=== PATIENT | female | born 1955 | race Caucasian/White ===

== ENCOUNTER 2016-12-10 13:43 | Emergency (ER) | payer OTHER ==
[~2016-12-10] VITALS: Ht 157.5 cm; Wt 77.1 kg
[2016-12-10 13:52] VITALS: BP 147/66
== END 2016-12-10 15:07 | disposition home or self-care (01) ==
LOC: ER 13:43
DX: J01.10 Acute frontal sinusitis, unspecified (principal)

== ENCOUNTER 2018-01-15 11:51 | Emergency (ER) | payer OTHER ==
[~2018-01-15] VITALS: Ht 157.5 cm; Wt 68.0 kg
[2018-01-15 12:08] VITALS: BP 134/86
[2018-01-15] MEDS ORDERED: ACETAMINOPHEN 325 MG TAB PO ONE (13:15)
== END 2018-01-15 13:46 | disposition home or self-care (01) ==
LOC: ER 11:51
DX: S82.832A Other fracture of upper and lower end of left fibula, initial encounter for closed fracture (principal); X50.1XXA Overexertion from prolonged static or awkward postures, initial encounter; Y93.89 Activity, other specified; Y99.8 Other external cause status; Y92.89 Other specified places as the place of occurrence of the external cause
CPT/HCPCS: 29125; 73610